=== PATIENT | female | born 1975 | race Caucasian/White ===

== ENCOUNTER 2016-07-02 09:33 | Emergency (ER) | payer OTHER ==
[~2016-07-02] VITALS: Wt 52.2 kg
[~2016-07-02 09:33] MED LIST: AMOXICILLIN500 MG PO; CATAFLAM50 MG PO; CLEOCIN HCL150 MG PO; DIFLUCAN150 MG PO; MOTRIN800 MG PO; NKHM; PEN-VEE K500 MG PO; TRAMADOL HCL50 MG PO; TRIMOX500 MG PO
[2016-07-02 09:40] VITALS: BP 128/84
[2016-07-02] MEDS ORDERED: CEPHALEXIN500 M1 PO (10:36)
[2016-07-02] MEDS ORDERED: BACTRIM DS 8001 TA1 PO (10:36)
[2016-07-02] MEDS ORDERED: HYDROCODONE BIT1 T11 PO (10:40)
== END 2016-07-02 10:42 | disposition left against medical advice (07) ==
LOC: ED 09:33
DX: L02.413 Cutaneous abscess of right upper limb (principal); F14.10 Cocaine abuse, uncomplicated; F12.10 Cannabis abuse, uncomplicated; F17.200 Nicotine dependence, unspecified, uncomplicated; Z98.890 Other specified postprocedural states; Z86.19 Personal history of other infectious and parasitic diseases

== ENCOUNTER → 2016-09-14 | Outpatient (CLI) | payer OTHER ==
[~2016-09-14] MED LIST changes: +BACTRIM DS 8001 TA1 PO; +CEPHALEXIN500 M1 PO; +HYDROCODONE BIT1 T11 PO
[2016-09-14 20:02] LABS: ALBUMIN 3.6 gm/dl (3.1-4.5); ALKALINE PHOSPHATASE 98 U/L (45-117); BILIRUBIN, TOTAL 0.3 mg/dl (0.2-1.0); BUN 8 mg/dl (7-24); CARBON DIOXIDE 26 mmol/L (21-32); CHLORIDE 103 mmol/L (98-107); EST GLOM FILT AFRICAN AMERICAN > 60 ml/min; GLUCOSE 131 mg/dL (65-99); POTASSIUM 4.2 mmol/L (3.5-5.1); SGOT/AST 45 IU/L (3-35); SGPT/ALT 57 U/L (12-78); SODIUM 139 mmol/L (136-145); TOTAL PROTEIN 8.8 gm/dL (6.4-8.2)
[2016-09-14 20:05] LABS: BILIRUBIN NEGATIVE (NEGATIVE); BLOOD NEGATIVE (NEGATIVE); CLARITY SL CLOUDY (CLEAR); COLOR YELLOW (YELLOW); GLUCOSE NEGATIVE (NEGATIVE); KETONE NEGATIVE (NEGATIVE); LEUKO ESTERASE NEGATIVE (NEGATIVE); NITRITE NEGATIVE (NEGATIVE); PROTEIN NEGATIVE (NEGATIVE); SPECIFIC GRAVITY >= 1.030 (1.005-1.030); UROBILINOGEN 0.2 E.U./dl (0.2-1.0)
[2016-09-14 20:14] LABS: BACTERIA 2+; EPITHELIAL CELLS 16-20
[2016-09-16 06:17] LABS: HEPATITIS B SURFACE AB 006395 Reactive (.)
[2016-09-16 08:11] LABS: HIV 1+2 AB + HIV1 P24 AG Non Reactive (Non Reactive)
== END | disposition home or self-care (01) ==
LOC: LAB 18:44
PROVIDERS: Family Medicine
DX: F11.21 Opioid dependence, in remission (principal)

== ENCOUNTER 2017-04-14 11:35 | Emergency (ER) | payer OTHER ==
[~2017-04-14] VITALS: Ht 157.4 cm; Wt 59.0 kg
[2017-04-14 11:41] VITALS: BP 124/71
[2017-04-14] MEDS ORDERED: CLINDAMYCIN150 MG PO (11:47)
[2017-04-14] MEDS ORDERED: NAPROSYN500 MG PO (11:47)
[2017-04-14] MEDS ORDERED: Peridex 473 ML473 ML PO (11:47)
== END 2017-04-14 13:32 | disposition home or self-care (01) ==
LOC: ED 11:35
DX: K08.89 Other specified disorders of teeth and supporting structures (principal); R03.0 Elevated blood-pressure reading, without diagnosis of hypertension; K02.9 Dental caries, unspecified; F10.10 Alcohol abuse, uncomplicated; F17.200 Nicotine dependence, unspecified, uncomplicated; F15.10 Other stimulant abuse, uncomplicated; F14.10 Cocaine abuse, uncomplicated

== ENCOUNTER 2017-11-29 07:47 | Emergency (ER) | payer OTHER ==
[~2017-11-29] VITALS: Ht 157.4 cm; Wt 68.0 kg
[~2017-11-29 07:47] MED LIST changes: +CLINDAMYCIN150 MG PO; +NAPROSYN500 MG PO; +Peridex 473 ML473 ML PO
[2017-11-29] MEDS ORDERED: METHADONE HCL10 MG PO (07:59)
[2017-11-29 08:30] LABS: BILIRUBIN NEGATIVE (NEGATIVE); BLOOD NEGATIVE (NEGATIVE); CLARITY CLEAR (CLEAR); COLOR YELLOW (YELLOW); GLUCOSE NEGATIVE (NEGATIVE); KETONE NEGATIVE (NEGATIVE); LEUKO ESTERASE TRACE (NEGATIVE); NITRITE NEGATIVE (NEGATIVE); PH 7.5 (5.0-9.0)
[2017-11-29 08:43] LABS: URINE AMPHETAMINES < 1000 (1000ng/ml); URINE BARBITURATES < 200 (200ng/ml); URINE BENZODIAZEPINES < 200 (200ng/ml); URINE CANNABINOIDS (THC) < 50 (50ng/ml); URINE COCAINE < 300 (300ng/ml); URINE METHADONE > 300 (300ng/ml); URINE OPIATES < 300 (300ng/ml)
[2017-11-29 08:44] LABS: URINE PHENCYCLIDINE < 25 (25ng/ml)
[2017-11-29 08:46] LABS: EPITHELIAL CELLS 31-40; WBC 21-30 wbc/hpf (0-5)
[2017-11-29 09:53] VITALS: BP 158/98
== END 2017-11-29 10:53 | disposition home or self-care (01) ==
LOC: ED 07:47
PROVIDERS: Emergency Medicine
DX: A59.9 Trichomoniasis, unspecified (principal); A64 Unspecified sexually transmitted disease; R11.2 Nausea with vomiting, unspecified; R10.9 Unspecified abdominal pain; R14.0 Abdominal distension (gaseous); F14.10 Cocaine abuse, uncomplicated; F11.10 Opioid abuse, uncomplicated; F12.10 Cannabis abuse, uncomplicated; F17.210 Nicotine dependence, cigarettes, uncomplicated; Z98.890 Other specified postprocedural states; Z79.899 Other long term (current) drug therapy

== ENCOUNTER → 2018-07-13 | Outpatient (CLI) | payer OTHER ==
[~2018-07-13] MED LIST changes: +METHADONE HCL10 MG PO
== END | disposition home or self-care (01) ==
LOC: US 10:24
DX: K76.0 Fatty (change of) liver, not elsewhere classified (principal)

== ENCOUNTER → 2019-02-15 | Outpatient (CLI) | payer OTHER ==
[2019-02-15 13:47] LABS: BASO # 0.1 10*3/uL (0.0-0.1); BASO % 0.8 % (0.0-1.0); EOS # 0.6 10*3/uL (0.0-0.4); EOS % 4.2 % (1.0-4.0); HEMATOCRIT 47.4 % (37.0-47.0); HEMOGLOBIN 14.5 g/dl (12.0-16.0); LYMPH # 3.6 10*3/uL (1.3-4.4); LYMPH % 27.7 % (27.0-41.0); MEAN CORPUSCULAR HGB 25.7 pg (27.0-31.0); MEAN CORPUSCULAR HGB CONC 30.6 g/dl (33.0-37.0); MEAN PLATELET VOLUME 11.7 fl (9.6-12.3); MONO % 7.9 % (3.0-9.0); NEUT # 7.7 10*3/uL (2.3-7.9); NEUT % 58.8 % (47.0-73.0); PLATELET COUNT AUTOMATED 287 10*3/uL (130-400); RED BLOOD COUNT 5.64 10*6/uL (4.10-5.10); RED CELL DISTRI WIDTH 17.7 % (0-14.5); WHITE BLOOD COUNT 13.1 10*3/uL (4.8-10.8)
[2019-02-15 14:21] LABS: ALBUMIN 3.2 gm/dl (3.1-4.5); ALKALINE PHOSPHATASE 170 U/L (45-117); BUN 6 mg/dl (7-24); CHLORIDE 98 mmol/L (98-107); CREATININE 0.83 mg/dL (0.55-1.02); POTASSIUM 3.8 mmol/L (3.5-5.1); SGOT/AST 74 IU/L (3-35); SGPT/ALT 45 U/L (12-78); SODIUM 134 mmol/L (136-145); TOTAL PROTEIN 8.4 gm/dL (6.4-8.2)
[2019-02-15 14:35] LABS: INTERNATIONAL NORM RATIO 1.2 (2.0-3.5)
[2019-02-15 15:23] LABS: URINE BENZODIAZEPINES < 200 (200ng/ml); URINE CANNABINOIDS (THC) < 50 (50ng/ml); URINE COCAINE < 300 (300ng/ml); URINE METHADONE > 300 (300ng/ml)
[2019-02-15 15:32] LABS: URINE AMPHETAMINES < 1000 (1000ng/ml); URINE BARBITURATES < 200 (200ng/ml); URINE OPIATES < 300 (300ng/ml); URINE PHENCYCLIDINE < 25 (25ng/ml)
[2019-02-16 07:08] LABS: HEPATITIS B SURFACE AB 006395 Reactive (.); HEPATITIS B SURFACE AG Negative (Negative)
[2019-02-16 21:04] LABS: HEPATITIS C QNT 240000 IU/mL (.)
== END | disposition home or self-care (01) ==
LOC: LAB 13:10
PROVIDERS: Internal Medicine Gastroenterology
DX: Z11.4 Encounter for screening for human immunodeficiency virus [HIV] (principal); Z11.59 Encounter for screening for other viral diseases; Z13.0 Encounter for screening for diseases of the blood and blood-forming organs and certain disorders involving the immune mechanism; Z11.3 Encounter for screening for infections with a predominantly sexual mode of transmission; B19.20 Unspecified viral hepatitis C without hepatic coma

== ENCOUNTER 2019-04-13 05:08 | Inpatient (IN) | payer OTHER ==
[~2019-04-13] VITALS: Ht 162.5 cm; Wt 72.3 kg
[2019-04-13] VITALS (8 sets, daily range): BP systolic 96–154; BP diastolic 31–112
[~2019-04-13 05:08] MED LIST changes: -METHADONE HCL10 MG PO; +METHADONE10 MG/1 M1 PO
[2019-04-13 06:21] LABS: BASO # 0.1 10*3/uL (0.0-0.1); BASO % 0.3 % (0.0-1.0); EOS % 0.1 % (1.0-4.0); HEMATOCRIT 41.1 % (37.0-47.0); LYMPH # 1.3 10*3/uL (1.3-4.4); LYMPH % 6.4 % (27.0-41.0); MEAN CELL VOLUME 77.4 fl (81.0-99.0); MEAN CORPUSCULAR HGB 26.4 pg (27.0-31.0); MEAN CORPUSCULAR HGB CONC 34.1 g/dl (33.0-37.0); MEAN PLATELET VOLUME 10.8 fl (9.6-12.3); MONO # 0.7 10*3/uL (0.1-1.0); MONO % 3.7 % (3.0-9.0); NEUT # 17.8 10*3/uL (2.3-7.9); NEUT % 88.8 % (47.0-73.0); NUCLEATED RED BLOOD CELL 0.1 % (0.0-0.0); PLATELET COUNT AUTOMATED 164 10*3/uL (130-400); RED BLOOD COUNT 5.31 10*6/uL (4.10-5.10); RED CELL DISTRI WIDTH 15.9 % (0-14.5)
[2019-04-13 06:39] LABS: ALBUMIN 2.7 gm/dl (3.1-4.5); ALKALINE PHOSPHATASE 98 U/L (45-117); BUN 43 mg/dl (7-24); CHLORIDE 78 mmol/L (98-107); POTASSIUM 3.7 mmol/L (3.5-5.1); SGOT/AST 31 IU/L (3-35); SGPT/ALT 17 U/L (12-78); TOTAL PROTEIN 7.2 gm/dL (6.4-8.2)
[2019-04-13 06:47] LABS: ETHYL ALCOHOL < 3.0 mg/dl (<3); SODIUM 118 mmol/L (136-145); TROPONIN I < 0.015 ng/ml (<0.045)
--- NOTE | 2019-04-13 06:55 | NUR ---
LACTIC ACID 6.5, NOTIFIED.
--- NOTE | 2019-04-13 07:01 | NUR ---
NURSE-NURSE REPORT RECEIVED.
[2019-04-13 08:21] LABS: BILIRUBIN 2+ (NEGATIVE); CLARITY SL CLOUDY (CLEAR); COLOR YELLOW (YELLOW); GLUCOSE NEGATIVE (NEGATIVE); KETONE TRACE (NEGATIVE)
[2019-04-13 08:22] LABS: BLOOD NEGATIVE (NEGATIVE); HYALINE CAST 25-30; LEUKO ESTERASE TRACE (NEGATIVE); NITRITE NEGATIVE (NEGATIVE); SPECIFIC GRAVITY 1.015 (1.005-1.030); UROBILINOGEN 0.2 E.U./dl (0.2-1.0)
[2019-04-13 09:08] LABS: URINE AMPHETAMINES < 1000 (1000ng/ml); URINE BARBITURATES < 200 (200ng/ml); URINE BENZODIAZEPINES < 200 (200ng/ml); URINE CANNABINOIDS (THC) < 50 (50ng/ml); URINE COCAINE < 300 (300ng/ml); URINE METHADONE > 300 (300ng/ml); URINE OPIATES < 300 (300ng/ml)
--- NOTE | 2019-04-13 09:08 | NUR ---
PT LACTIC ACID 2.7. DR AWARE OF VALUE.
[2019-04-13 09:09] LABS: URINE PHENCYCLIDINE < 25 (25ng/ml)
--- NOTE | 2019-04-13 09:47 | NUR ---
PT EATING BREAKFAST TRAY AT THIS TIME. MOTHER AT BEDSIDE.
--- NOTE | 2019-04-13 10:20 | NUR ---
A 43, admitted to ICCU, under the services of NORA Alonzo DO with a diagnosis of METABOLIC ENCEPHALOPATHY. Chief complaint is brought in by mother. Patient arrived via stretcher from ER. Monitor applied. Initial assessment completed. Vital signs taken and recorded. NORA ALONZO DO notified of admission to the unit. Orders received. See assessment for past medical history, medications and allergies. Patient and/or family oriented to unit. [facility] ICCU visitation policy reviewed. Clothing/patient valuable form completed. ALEX GANDARA
[2019-04-13 11:00] LABS: CREATININE 1.74 mg/dL (0.55-1.02); POTASSIUM 3.7 mmol/L (3.5-5.1)
--- NOTE | 2019-04-13 11:21 | NUR ---
DR. WEST'S ANSWERING SERVICE NOTIFIED OF CONSULT.
--- NOTE | 2019-04-13 12:27 | NUR ---
RESTLESS, SITTING UP ON BOTTOM OF BED. CONFUSED. HALLUCINATING, PULLING AT HEART MONITOR WIRES. MEDICATED WITH ATIVAN 1MG IV FOR RESTLESSNESS. NS STARTED AT 60CC/HR VIA RIGHT ARM.
--- NOTE | 2019-04-13 13:01 | NUR ---
ATIVAN EFFECTIVE. RESTING WITH EYES CLOSED.
[2019-04-13 13:35] LABS: CREATININE 1.56 mg/dL (0.55-1.02); POTASSIUM 3.1 mmol/L (3.5-5.1)
--- NOTE | 2019-04-13 14:21 | NUR ---
BLADDER SCANNED FOR 250CC URINE. DR. ARRIAZA NOTIFIED.
--- NOTE | 2019-04-13 16:11 | NUR ---
Nursing screen received and chart reviewed. Patient admitted with metabolic encephalopathy and in ICCU. If patient should have a decline in ADLs or functional mobility then refer to OT. Thank you. Yazan Mendieta OTR/L
--- NOTE | 2019-04-13 20:24 | NUR ---
PATIENT VERY AGITATED, RESTLESS. SAYING SHE DIDNT WANT TO , YELLING AT HER MOM. ATIVAN GIVEN. WILL MONITOR AND REASSESS.
--- NOTE | 2019-04-13 21:15 | NUR ---
PATIENT MOVING ABOUT IN BED, LESS RESTLESS. NO MORE YELLING OUR OR CRYING. ATIVAN EFFECTIVE.
[2019-04-13 21:54] LABS: CREATININE 1.24 mg/dL (0.55-1.02); POTASSIUM 3.2 mmol/L (3.5-5.1)
[2019-04-14] VITALS: BP 100/50
--- NOTE | 2019-04-14 00:42 | NUR ---
24 HR chart check completed.
[2019-04-14 04:10] VITALS: BP 98/58
--- NOTE | 2019-04-14 04:30 | NUR ---
PATIENT WAS AROUSED TO GET BLOOD WORK. PATIENT MUMBLING, ASKED IF SHE NEEDED TO USE THE BEDSIDE, PATIENT STATED YES, BUT WAS UNABLE TO SIT UP IN BED AND GET UP TO BEDSIDE. PATIENT PLACED ON BEDPAN AND WAS ABLE TO URINATE. PATIENT ADJUSTED IN BED. BED ALARM SET.
[2019-04-14 07:04] LABS: BASO % 0.3 % (0.0-1.0); EOS # 0.2 10*3/uL (0.0-0.4); EOS % 1.3 % (1.0-4.0); HEMATOCRIT 35.2 % (37.0-47.0); HEMOGLOBIN 11.6 g/dl (12.0-16.0); LYMPH # 2.1 10*3/uL (1.3-4.4); LYMPH % 17.7 % (27.0-41.0); MEAN CELL VOLUME 78.6 fl (81.0-99.0); MEAN CORPUSCULAR HGB 25.9 pg (27.0-31.0); MEAN PLATELET VOLUME 11.1 fl (9.6-12.3); MONO # 0.7 10*3/uL (0.1-1.0); MONO % 5.8 % (3.0-9.0); NEUT # 8.6 10*3/uL (2.3-7.9); NEUT % 74.2 % (47.0-73.0); PLATELET COUNT AUTOMATED 116 10*3/uL (130-400); RED BLOOD COUNT 4.48 10*6/uL (4.10-5.10); RED CELL DISTRI WIDTH 16.2 % (0-14.5); WHITE BLOOD COUNT 11.6 10*3/uL (4.8-10.8)
--- NOTE | 2019-04-14 07:06 | NUR ---
Shift chart check completed.
[2019-04-14 07:11] LABS: INTERNATIONAL NORM RATIO 1.6 (2.0-3.5)
[2019-04-14 07:31] LABS: ALBUMIN 2.4 gm/dl (3.1-4.5); ALKALINE PHOSPHATASE 74 U/L (45-117); BUN 31 mg/dl (7-24); CHLORIDE 93 mmol/L (98-107); CHOLESTEROL 152 mg/dL (<200); CREATININE 1.12 mg/dL (0.55-1.02); HDL CHOLESTEROL 25 mg/dl (40-60); LDL CHOLESTEROL 94 mg/dL (9-159); PHOSPHOROUS 2.9 mg/dL (2.5-4.9); POTASSIUM 3.2 mmol/L (3.5-5.1); SGOT/AST 27 IU/L (3-35); SGPT/ALT 16 U/L (12-78); SODIUM 127 mmol/L (136-145); TOTAL PROTEIN 6.2 gm/dL (6.4-8.2); TRIGLYCERIDES 165 mg/dl (<150); VLDL CHOLESTEROL 33 mg/dL (6-40)
[2019-04-14 08:00] VITALS: BP 100/60
--- NOTE | 2019-04-14 08:00 | NUR ---
DR BRITT ROUNDED - PATIENT WAS CALM PRIOR TO NURSE STARTING ASSESMENT BUT WITH QUESTIONS & ASSESSMENT PATIENT BECOME MORE RESTLESS & FIDGETING, ROCKING BACK & FORTH, MESSING WITH LINES, UNABLE TO ANSWER QUESTIONS EXCEPT THAT SHE WAS IN THE HOSPITAL
--- NOTE | 2019-04-14 08:30 | NUR ---
RENAL CALL PLACED TO ANSWERING SERVICE WITH THIS AM LABS
[2019-04-14 08:35] LABS: VITAMIN D, 25-HYDROXY 6.5 ng/mL (30-100)
--- NOTE | 2019-04-14 08:36 | NUR ---
DR FONSECA CALLED BACK - CASE REVIEWED ALONG WITH AM LABS. OK TO STOP IVF ONCE THIS BAG COMPLETES. HOSPITALISTS TO REPLACE POTASSIUM
--- NOTE | 2019-04-14 09:45 | NUR ---
MOTHER WAS HERE AND SPOKE WITH DR ESPINOZA. SHE WENT TO GET HER MEDS FOR US TO REVIEW. PATIENT BECOMES RESTLESS, CONSTANT MOTION, TEARFUL & UNABLE TO PUT WORDS TO WHAT SHE WANTS THE LONGER SHE IS AWAKE. ONCE SHE CAN GET SETTLED & LEFT ALONE SHE DOZES INCLUDING SOME OCC SNORING.
--- NOTE | 2019-04-14 10:26 | NUR ---
MOTHER BROUGHT IN METHADONE FROM HOME BUT REFUSED TO OPEN IT. NURSE OPENED IT WITH MOTHER PRESENT & 2 STAFF MEMBERS AT DESK. BOTTLES DATED BACK TO 04/07 & THAT WAS THE ONLY BOTTLE THAT WAS EMPTY. DR BRITT CALLED WITH INFORMATION. MEDICATION FROM [facility] [phone]. .
--- NOTE | 2019-04-14 11:04 | NUR ---
METHADONE TAKEN WITHOUT DIFFICULTY - EXPLAINED TO MOM THAT SHE NEEDS TO REST & IT IS OK THAT SHE CLOSES HER EYES. IVF COMPLETED - SITE HEP LOCKED.
[2019-04-14 12:00] VITALS: BP 107/76
--- NOTE | 2019-04-14 12:58 | NUR ---
SLEEPING - VSS - RESP EASY & NONLABORED
[2019-04-14 16:00] VITALS: BP 98/68
[2019-04-14 20:00] VITALS: BP 103/58; BP 114/48
[2019-04-15] VITALS: BP 110/66
[2019-04-15 04:00] VITALS: BP 102/66
[2019-04-15 04:39] LABS: BASO % 0.5 % (0.0-1.0); EOS # 0.2 10*3/uL (0.0-0.4); EOS % 2.4 % (1.0-4.0); HEMATOCRIT 35.3 % (37.0-47.0); HEMOGLOBIN 11.6 g/dl (12.0-16.0); LYMPH # 1.8 10*3/uL (1.3-4.4); LYMPH % 21.4 % (27.0-41.0); MEAN CELL VOLUME 79.9 fl (81.0-99.0); MEAN CORPUSCULAR HGB 26.2 pg (27.0-31.0); MEAN CORPUSCULAR HGB CONC 32.9 g/dl (33.0-37.0); MEAN PLATELET VOLUME 10.9 fl (9.6-12.3); MONO # 0.6 10*3/uL (0.1-1.0); MONO % 6.8 % (3.0-9.0); NEUT # 5.6 10*3/uL (2.3-7.9); NEUT % 68.1 % (47.0-73.0); PLATELET COUNT AUTOMATED 94 10*3/uL (130-400); RED BLOOD COUNT 4.42 10*6/uL (4.10-5.10); RED CELL DISTRI WIDTH 16.6 % (0-14.5); WHITE BLOOD COUNT 8.3 10*3/uL (4.8-10.8)
[2019-04-15 04:53] LABS: ALBUMIN 2.4 gm/dl (3.1-4.5); ALKALINE PHOSPHATASE 75 U/L (45-117); BUN 22 mg/dl (7-24); CHLORIDE 97 mmol/L (98-107); CREATININE 0.99 mg/dL (0.55-1.02); PHOSPHOROUS 3.1 mg/dL (2.5-4.9); POTASSIUM 3.7 mmol/L (3.5-5.1); SGOT/AST 24 IU/L (3-35); SGPT/ALT 19 U/L (12-78); SODIUM 130 mmol/L (136-145); TOTAL PROTEIN 6.3 gm/dL (6.4-8.2)
--- NOTE | 2019-04-15 07:45 | NUR ---
RESTING IN BED. DENIES ANY COMPLAINTS. HAD PULLED IV OUT IN RIGHT FOOT AND WAS FOUND IN HAND. SLOW TO RESPOND. CONFUSED TO PLACE AND TIME. PULSE OX 98% ON ROOM AIR. BP 115/78. AFEBRILE.
[2019-04-15 08:00] VITALS: BP 115/78
[2019-04-15 12:00] VITALS: BP 112/78
--- NOTE | 2019-04-15 12:00 | NUR ---
COMPLETE BED AND BATH DONE.
--- NOTE | 2019-04-15 14:53 | NUR ---
BLADDER SCANNED FOR 250CC URINE
[2019-04-15 16:00] VITALS: BP 116/68
--- NOTE | 2019-04-15 18:04 | NUR ---
SLEEPING WITH EYES CLOSED. MOTHER HERE AT BEDSIDE. OPENS EYES AT TIMES AND THEN FALLS BACK TO SLEEP.
--- NOTE | 2019-04-15 18:28 | NUR ---
BLADDER SCANNED FOR 275CC. STILL HAS NOT VOIDED SINCE THIS AM. HAS ONLY HAD 100CC LIQUID IN THIS SHIFT.
[2019-04-15 20:00] VITALS: BP 103/71
--- NOTE | 2019-04-15 20:18 | NUR ---
PT. RESTING IN BED. HEP LOCK IN RA ASMPT. LUNGS DIMINISHED BILAT, PULSE OX 97% ON RA. ABDOMEN SOFT, NONDISTENDED AND NORMO. NO P ERIPHERAL EDEMA NOTED. RESP. EASY AND REG, N ODISTRESS. TRUE BURCIAGA, RN
--- NOTE | 2019-04-15 22:09 | NUR ---
PT. AWAKENED ENOUGH TO EAT BOX LUNCH AND DRINK CRANBERRY JUICE. BACK TO SLEEP.
[2019-04-16] VITALS: BP 104/56
[2019-04-16 04:00] VITALS: BP 110/65
[2019-04-16 06:03] LABS: BASO % 0.6 % (0.0-1.0); EOS # 0.2 10*3/uL (0.0-0.4); EOS % 2.8 % (1.0-4.0); HEMATOCRIT 35.8 % (37.0-47.0); HEMOGLOBIN 11.6 g/dl (12.0-16.0); LYMPH # 1.7 10*3/uL (1.3-4.4); LYMPH % 23.2 % (27.0-41.0); MEAN CELL VOLUME 81.4 fl (81.0-99.0); MEAN CORPUSCULAR HGB 26.4 pg (27.0-31.0); MEAN CORPUSCULAR HGB CONC 32.4 g/dl (33.0-37.0); MEAN PLATELET VOLUME 10.5 fl (9.6-12.3); MONO # 0.5 10*3/uL (0.1-1.0); MONO % 6.4 % (3.0-9.0); NEUT # 4.8 10*3/uL (2.3-7.9); PLATELET COUNT AUTOMATED 91 10*3/uL (130-400); WHITE BLOOD COUNT 7.2 10*3/uL (4.8-10.8)
[2019-04-16 06:17] LABS: INTERNATIONAL NORM RATIO 1.4 (2.0-3.5)
[2019-04-16 06:34] LABS: ALBUMIN 2.5 gm/dl (3.1-4.5); ALKALINE PHOSPHATASE 81 U/L (45-117); BUN 13 mg/dl (7-24); CHLORIDE 97 mmol/L (98-107); CREATININE 0.95 mg/dL (0.55-1.02); PHOSPHOROUS 3.8 mg/dL (2.5-4.9); POTASSIUM 3.5 mmol/L (3.5-5.1); SGOT/AST 29 IU/L (3-35); SGPT/ALT 23 U/L (12-78); SODIUM 132 mmol/L (136-145); TOTAL PROTEIN 6.6 gm/dL (6.4-8.2)
[2019-04-16 08:00] VITALS: BP 107/60
--- NOTE | 2019-04-16 08:08 | NUR ---
PT AWAKE AND ALERT. PT ORIENTED TO SELF ONLY. VSS. PT CONTIUES TO HAVE JERKY TYPE MOVEMENTS OF ARMS. PT DENIES COMPLAINTS OF PAIN,NUASEA, OR SOB AT PRESENT TIME.
--- NOTE | 2019-04-16 10:30 | NUR ---
Medicaid Analyst in to talk to patient. Patient states lives at [place] with her mother. There are 14 steps in the home. Physician: Dr. Anthony Sawyer [facility]: [facility] Home health services: none Patient's level of ADLs: INDEPENDENT Patient has working utilities: yes DME: none Follow-up physician's appointment after d/c: will be made by the hospitalist nurse director upon discharge Does patient want to access PORTAL?: no Discharge plan discussed with mother who is at the patient's bedside. Patient is unable to answer questions appropriately. She lives at home with her mother. She is normally independent in her Adls and ambulation. Discussed home health care services and the mother denies any home needs at this time. When medically stable she will be discharged to home. Her mother will provide transportation on discharge. EMILY SOLORZANO
--- NOTE | 2019-04-16 11:08 | NUR ---
PT'S MOTHER IN TO VISIT.
[2019-04-16 12:00] VITALS: BP 97/65
--- NOTE | 2019-04-16 13:00 | NUR ---
PT REFUSED TEDS/SCDS AGAIN.
--- NOTE | 2019-04-16 14:09 | NUR ---
PT EATING LUNCH. PT DENIES COMPLAINTS AT THIS TIME.
--- NOTE | 2019-04-16 15:06 | NUR ---
PT REPORT GIVEN TO RECEIVING NURSE ON 4E.
[2019-04-16 16:00] VITALS: BP 106/64
--- NOTE | 2019-04-16 16:17 | NUR ---
NURSING SCREEN RECEIVED AND CHART REVIEWED. PATIENT IS A 43 Y/O FEMALE ADMITTED FOR CONFUSION AND AMS. PATIENT PMH INCLUDES ANXIETY AND POLYSUBSTANCE ABUSE. IF PATIENT HAS A DECLINE IN ADLS OR FUNCTIONAL MOBILITY/TRANSFERS, PLEASE SEND OT REFERRAL. THANK YOU. VANNESA WESTFALL, OTR/L
[2019-04-16 20:00] VITALS: BP 106/55
[2019-04-17] VITALS: BP 121/83
--- NOTE | 2019-04-17 05:10 | NUR ---
24 HR chart check completed.
[2019-04-17 06:53] LABS: BASO % 0.5 % (0.0-1.0); EOS # 0.2 10*3/uL (0.0-0.4); EOS % 2.2 % (1.0-4.0); HEMATOCRIT 34.5 % (37.0-47.0); HEMOGLOBIN 11.4 g/dl (12.0-16.0); LYMPH # 1.4 10*3/uL (1.3-4.4); LYMPH % 17.6 % (27.0-41.0); MEAN CELL VOLUME 81.2 fl (81.0-99.0); MEAN CORPUSCULAR HGB 26.8 pg (27.0-31.0); MEAN PLATELET VOLUME 11.5 fl (9.6-12.3); MONO # 0.6 10*3/uL (0.1-1.0); MONO % 8.3 % (3.0-9.0); NEUT # 5.5 10*3/uL (2.3-7.9); NEUT % 70.8 % (47.0-73.0); PLATELET COUNT AUTOMATED 85 10*3/uL (130-400); RED BLOOD COUNT 4.25 10*6/uL (4.10-5.10); WHITE BLOOD COUNT 7.7 10*3/uL (4.8-10.8)
[2019-04-17 07:27] LABS: CHLORIDE 99 mmol/L (98-107); POTASSIUM 3.6 mmol/L (3.5-5.1); SODIUM 135 mmol/L (136-145)
[2019-04-17 07:44] LABS: ALBUMIN 2.4 gm/dl (3.1-4.5); ALKALINE PHOSPHATASE 80 U/L (45-117); BUN 9 mg/dl (7-24); CREATININE 0.91 mg/dL (0.55-1.02); SGOT/AST 26 IU/L (3-35); SGPT/ALT 22 U/L (12-78); TOTAL PROTEIN 6.5 gm/dL (6.4-8.2)
[2019-04-17 08:00] VITALS: BP 119/66
--- NOTE | 2019-04-17 08:00 | NUR ---
IN TO ROOM. PT AWAKE AND ALERT. PT MORE ORIENTED TODAY BUT SPEECH IS STILL SLOW. PT DOES NOT CARRY ON CONVERSATION, SHORT RESPONSES ONLY. NO STATED COMPLAINTS. NO S/S OF DISTRESS OR SOB. BED IN LOWEST LOCKED POSITION AND CALL LIGHT WITHIN REACH.
--- NOTE | 2019-04-17 09:00 | NUR ---
AFTER ADMINISTERING MEDICATIONS PT STATES THAT SHE IS . UPON REVIEW OF HER CHART NO TEST IS FOUND. DR. ELLIOTT NOTIFIED AND ORDERS OBTAINED.
--- NOTE | 2019-04-17 10:00 | NUR ---
U NOTIFIED OF CONSULT.
--- NOTE | 2019-04-17 10:30 | NUR ---
Heavy Duty Press Operator in to see patient. No new needs or request at this time. No home needs at this time. When medically stable she will be discharged to home with her mother. Per multidisciplinary discharge planning meeting patient's mentation is improving, continue to watch.
[2019-04-17 12:00] VITALS: BP 118/56
--- NOTE | 2019-04-17 12:00 | NUR ---
FAMILY OUT TO THE DESK. ALL QUESTIONS ANSWERED. EDUCATION PROVIDED ABOUT MRI.
[2019-04-17 16:00] VITALS: BP 118/78
[2019-04-17 20:00] VITALS: BP 120/67
[2019-04-18] VITALS: BP 120/61
[2019-04-18 07:08] LABS: HEMATOCRIT 34.5 % (37.0-47.0); HEMOGLOBIN 11.3 g/dl (12.0-16.0); MEAN CELL VOLUME 79.7 fl (81.0-99.0); MEAN CORPUSCULAR HGB 26.1 pg (27.0-31.0); MEAN CORPUSCULAR HGB CONC 32.8 g/dl (33.0-37.0); MEAN PLATELET VOLUME 11.3 fl (9.6-12.3); PLATELET COUNT AUTOMATED 100 10*3/uL (130-400); RED BLOOD COUNT 4.33 10*6/uL (4.10-5.10); WHITE BLOOD COUNT 9.7 10*3/uL (4.8-10.8)
[2019-04-18 07:09] LABS: ALBUMIN 2.7 gm/dl (3.1-4.5); ALKALINE PHOSPHATASE 73 U/L (45-117); BUN 4 mg/dl (7-24); CHLORIDE 105 mmol/L (98-107); CREATININE 0.87 mg/dL (0.55-1.02); POTASSIUM 3.9 mmol/L (3.5-5.1); SGOT/AST 28 IU/L (3-35); SGPT/ALT 20 U/L (12-78); SODIUM 137 mmol/L (136-145); TOTAL PROTEIN 6.8 gm/dL (6.4-8.2)
[2019-04-18 08:00] VITALS: BP 116/66
--- NOTE | 2019-04-18 08:00 | NUR ---
PT RESTING IN BED. ASSISTED WITH TWO ASSIST TO BATHROOM AND BACK TO BED. PT UNSTEADY ON HER FEET. BED ALARM ON. PT HAS CONFUSION AND FLAT AFFECT. CALL LIGHT IN REACH. SEE SHIFT ASSESSMENT.
[2019-04-18 08:29] LABS: ATYPICAL LYMPHS 1 % (0-0); BASOPHILS 1 % (0-1); PLATELET SUFFICIENCY LOW (NORMAL); TOTAL CELLS COUNTED 100 #CELLS
--- NOTE | 2019-04-18 10:05 | NUR ---
MEDICATED WITH ATIVAN PER PRN ORDER FOR ANXIETY FOR MRI TEST. MOTHER AT HER SIDE. CALL LIGHT IN REACH.
--- NOTE | 2019-04-18 10:50 | NUR ---
Occupational Therapy evaluation completed on 4 with full eval to follow. Precautions include fall risk; bed alarm, poor sit balance,lethargic, difficulty following simple commands,difficulty staying on task, not oriented to time, +2 transfer assist, high complexity level [id number] via chart review, testing and evaluation. Recommend OT per POC and inpatient rehab upon d/c. Thank you. Yazan Mendieta OTR/l
--- NOTE | 2019-04-18 11:15 | NUR ---
PT BACK FROM MRI. DROWSY. MEDICATION WAS EFFECTIVE. CALL LIGHT IN REACH. BED ALARM ON.
--- NOTE | 2019-04-18 11:16 | NUR ---
DR. RUBY IN ROOM TO SEE PT.
[2019-04-18 12:00] VITALS: BP 114/71
--- NOTE | 2019-04-18 12:00 | NUR ---
PT SLEEPING IN BED. RESP-EASY AND REGULAR. BED ALARM ON. CALL LIGHT IN REACH.
--- NOTE | 2019-04-18 14:04 | NUR ---
DR. ELLIOTT SPOKE WITH MOM REGARDING TRANSFERRING PT TO [facility].
[2019-04-18] MEDS ORDERED: Vitamin D PO (14:14)
--- NOTE | 2019-04-18 14:56 | NUR ---
PT RESTING IN BED WITH MOM AT HER SIDE. PT DROWSY SHE IS TRYING TO GET HER UP TO EAT. CALL LIGHT IN REACH. BED ALARM ON.
--- NOTE | 2019-04-18 15:30 | NUR ---
PT SITTING UP IN BED WITH MOM AT HER SIDE. EATING DINNER. REPS-EASY AND REGULAR. NO C/O AT THIS TIME. CALL LIGHT IN REACH. SEE SHIFT ASSESSMENT.
[2019-04-18 16:00] VITALS: BP 108/63
--- NOTE | 2019-04-18 17:33 | NUR ---
CALLED [facility] GAVE REPORT TO ANANDA FOR TRANSFER.
--- NOTE | 2019-04-18 18:30 | NUR ---
Discharge instructions reviewed with patient/family. Patient receptive and verbalizes understanding. Follow-up care arranged. Written instructions given to patient/family. ESCORTED VIA AMBULANCE VIA CART. PAPERS GIVEN. CRESCENCIO KERR
== END 2019-04-18 18:30 | disposition short-term general hospital (02) | DRG 469 ==
LOC: ED 05:08 → 4E 09:32 → EDHOLD 09:32 → ICCU 09:32 → 4E 04-16 14:32
PROVIDERS: Emergency Medicine; Internal Medicine; Student in an Organized Health Care Education/Training Program; ADMIT Emergency Medicine
DX: N17.0 Acute kidney failure with tubular necrosis (principal); R65.11 Systemic inflammatory response syndrome (SIRS) of non-infectious origin with acute organ dysfunction; G93.40 Encephalopathy, unspecified; E87.8 Other disorders of electrolyte and fluid balance, not elsewhere classified; E87.2 Acidosis; E43 Unspecified severe protein-calorie malnutrition; E66.3 Overweight; K76.0 Fatty (change of) liver, not elsewhere classified; F41.9 Anxiety disorder, unspecified; F17.210 Nicotine dependence, cigarettes, uncomplicated; E87.1 Hypo-osmolality and hyponatremia; R65.10 Systemic inflammatory response syndrome (SIRS) of non-infectious origin without acute organ dysfunction; R73.9 Hyperglycemia, unspecified; D69.6 Thrombocytopenia, unspecified; D64.9 Anemia, unspecified; E53.8 Deficiency of other specified B group vitamins; E55.9 Vitamin D deficiency, unspecified; R41.0 Disorientation, unspecified; F19.10 Other psychoactive substance abuse, uncomplicated; Z98.891 History of uterine scar from previous surgery; Z68.27 Body mass index [BMI] 27.0-27.9, adult

== ENCOUNTER 2020-04-19 07:37 | Emergency (ER) | payer OTHER ==
[~2020-04-19] VITALS: Ht 157.4 cm; Wt 56.7 kg
[~2020-04-19 07:37] MED LIST changes: +Vitamin D PO
[2020-04-19 07:43] VITALS: BP 139/88
== END 2020-04-19 09:00 | disposition home or self-care (01) ==
LOC: ED 07:37
DX: H10.9 Unspecified conjunctivitis (principal); Z79.899 Other long term (current) drug therapy

== ENCOUNTER 2020-06-23 15:20 | Emergency (ER) | payer OTHER ==
[~2020-06-23] VITALS: Wt 56.7 kg
[2020-06-23 15:27] VITALS: BP 134/67
[2020-06-23 16:33] LABS: BASO % 0.4 % (0.0-1.0); EOS # 0.1 10*3/uL (0.0-0.4); EOS % 1.7 % (1.0-4.0); HEMATOCRIT 40.4 % (37.0-47.0); LYMPH # 1.6 10*3/uL (1.3-4.4); LYMPH % 21.6 % (27.0-41.0); MEAN CORPUSCULAR HGB 30.3 pg (27.0-31.0); MEAN CORPUSCULAR HGB CONC 32.9 g/dl (33.0-37.0); MEAN PLATELET VOLUME 10.2 fl (9.6-12.3); MONO # 0.6 10*3/uL (0.1-1.0); MONO % 7.9 % (3.0-9.0); NEUT # 5.1 10*3/uL (2.3-7.9); NEUT % 68.3 % (47.0-73.0); PLATELET COUNT AUTOMATED 251 10*3/uL (130-400); RED BLOOD COUNT 4.39 10*6/uL (4.10-5.10); RED CELL DISTRI WIDTH 13.8 % (0-14.5); WHITE BLOOD COUNT 7.4 10*3/uL (4.8-10.8)
[2020-06-23 16:49] LABS: ALBUMIN 3.3 gm/dl (3.1-4.5); ALKALINE PHOSPHATASE 74 U/L (45-117); BUN 12 mg/dl (7-24); CHLORIDE 104 mmol/L (98-107); CREATININE 0.93 mg/dL (0.55-1.02); SGOT/AST 53 IU/L (3-35); SGPT/ALT 45 U/L (12-78); SODIUM 137 mmol/L (136-145); TOTAL PROTEIN 7.2 gm/dL (6.4-8.2)
[2020-06-23 17:00] LABS: BILIRUBIN Negative (Negative); BLOOD 3+ (Negative); CLARITY Cloudy (Clear); COLOR Orange (Yellow); GLUCOSE Negative (Negative); KETONE Trace (Negative); LEUKO ESTERASE 1+ (Negative); NITRITE Negative (Negative); PH 5.5 (4.5-8.0)
[2020-06-23 17:07] LABS: BACTERIA 2+; RBC TNTC rbc/hpf (0-2); WBC 21-30 wbc/hpf (0-5)
[2020-06-23 17:14] LABS: URINE AMPHETAMINES > 1000 (1000ng/ml); URINE BARBITURATES < 200 (200ng/ml); URINE BENZODIAZEPINES < 200 (200ng/ml); URINE CANNABINOIDS (THC) < 50 (50ng/ml); URINE COCAINE > 300 (300ng/ml); URINE METHADONE > 300 (300ng/ml); URINE OPIATES < 300 (300ng/ml)
[2020-06-23 17:16] LABS: URINE PHENCYCLIDINE < 25 (25ng/ml)
[2020-06-23] MEDS ORDERED: SEPTDS PO (17:47)
[2020-06-23] MEDS ORDERED: PREDNISONE20 M1 PO (17:47)
== END 2020-06-23 18:38 | disposition home or self-care (01) ==
LOC: ED 15:20
PROVIDERS: Physician Assistant
DX: L08.82 Omphalitis not of newborn (principal); R30.0 Dysuria; R22.0 Localized swelling, mass and lump, head; R42 Dizziness and giddiness; F32.9 Major depressive disorder, single episode, unspecified; F41.9 Anxiety disorder, unspecified; F17.200 Nicotine dependence, unspecified, uncomplicated; Z79.899 Other long term (current) drug therapy; Z98.890 Other specified postprocedural states; Z90.721 Acquired absence of ovaries, unilateral; Z86.14 Personal history of Methicillin resistant Staphylococcus aureus infection

== ENCOUNTER 2021-08-12 08:49 | Emergency (ER) | payer OTHER ==
[~2021-08-12] VITALS: Wt 54.4 kg
[~2021-08-12 08:49] MED LIST changes: +PREDNISONE20 M1 PO; +SEPTDS PO
[2021-08-12 10:00] VITALS: BP 143/82
[2021-08-12 10:01] LABS: HEMATOCRIT 42.1 % (37.0-47.0); MEAN CELL VOLUME 81.6 fl (81.0-99.0); MEAN CORPUSCULAR HGB 26.9 pg (27.0-31.0); MEAN PLATELET VOLUME 10.8 fl (9.6-12.3); PLATELET COUNT AUTOMATED 302 10*3/uL (130-400); RED BLOOD COUNT 5.16 10*6/uL (4.10-5.10); RED CELL DISTRI WIDTH 15.5 % (0-14.5)
[2021-08-12 10:05] LABS: MANUAL DIFF REFLEX YES
[2021-08-12 10:06] LABS: WHITE BLOOD COUNT 37.6 10*3/uL (4.8-10.8)
[2021-08-12 10:16] LABS: ALKALINE PHOSPHATASE 90 U/L (45-117); BUN 12 mg/dl (7-24); CHLORIDE 105 mmol/L (98-107); CREATININE 1.39 mg/dL (0.55-1.02); LIPASE 27 U/L (73-393); POTASSIUM 3.8 mmol/L (3.5-5.1); SGOT/AST 22 IU/L (3-35); SGPT/ALT 21 U/L (12-78); SODIUM 136 mmol/L (136-145); TOTAL PROTEIN 8.2 gm/dL (6.4-8.2)
[2021-08-12 10:23] LABS: PLATELET SUFFICIENCY NORMAL (NORMAL); TOTAL CELLS COUNTED 100 #CELLS
[2021-08-12 10:30] LABS: BETA-HCG, QUANT < 1.0 mIU/mL (1-3)
== END 2021-08-12 11:30 | disposition left against medical advice (07) ==
LOC: ED 08:49
PROVIDERS: Emergency Medicine
DX: R10.9 Unspecified abdominal pain (principal); F43.21 Adjustment disorder with depressed mood; F17.200 Nicotine dependence, unspecified, uncomplicated; Z98.890 Other specified postprocedural states

== ENCOUNTER 2021-08-12 12:45 | Emergency (ER) | payer OTHER | END 2021-08-12 13:42 | disposition left against medical advice (07) | LOC: ED 12:45 | DX: R51.9 Headache, unspecified (principal); R10.9 Unspecified abdominal pain; Z53.21 Procedure and treatment not carried out due to patient leaving prior to being seen by health care provider ==

== ENCOUNTER 2022-01-01 16:18 | Emergency (ER) | payer OTHER ==
[2022-01-01] MEDS ORDERED: PREDNISONE10 MG PO (17:14)
[2022-01-01] MEDS ORDERED: PERCOCET 5-3251 EACH PO (17:14)
== END 2022-01-01 17:26 | disposition home or self-care (01) ==
LOC: ED 16:18
DX: M54.41 Lumbago with sciatica, right side (principal); F17.200 Nicotine dependence, unspecified, uncomplicated; Z98.890 Other specified postprocedural states; Z87.442 Personal history of urinary calculi; Z87.42 Personal history of other diseases of the female genital tract